=== PATIENT | female | born 1975 | race Caucasian/White ===

== ENCOUNTER 2016-06-20 09:11 | Emergency (ER) | payer OTHER ==
[2016-06-20 09:36] VITALS: BP 133/81
--- NOTE | 2016-06-20 10:28 | UC ---
HPI Wound/Suture Re-check - HPI Summary HPI Summary: pt presents to have sutures removed from her scalp that were placed while she was in inpt rehab for alcohol, 10 days ago. States she has had no problems with them. Believes she was told there were 7 sutures, but admits that she did pick at the sutures one night in her sleep, so she may have picked one out. - History Of Current Complaint Chief Complaint: UCSkin Stated Complaint: STITCHES REMOVAL Time Seen by Provider: 06/20/16 10:24 Hx Obtained From: Patient Onset/Duration: Gradual Onset, Lasting Days, Still Present Surgical Site: posterior scalp Severity: Mild Pain Intensity: 0 Pain Scale Used: 0-10 Numeric Procedure Type: sutures Surgery Date: 06/11/16 - not at a [facility] facility - Allergies/Home Medications Allergies/Adverse Reactions: Allergies Allergy/AdvReac Type Severity Reaction Status Date / Time No Known Allergies Allergy Verified 06/20/16 09:29 Home Medications: Home Medications Naltrexone (NF) 50 mg PO DAILY 06/20/16 [History Confirmed 06/20/16] hydrOXYzine HCL TAB* [Atarax TAB*] 10 mg PO DAILY 06/20/16 [History Confirmed ] PMH/Surg Hx/FS Hx/Imm Hx Previously Healthy: No - alcoholism, s/p rehab - Surgical History Surgical History: None - Family History Known Family History: Positive: Other - alcohol abuse - Social History Lives: With Family Alcohol Use: None Alcohol Amount: currently in rehab for alcohol Substance Use Type: None Substance Use Comment - Amount & Last Used: currently in rehab for use Smoking Status (MU): Never Smoked Tobacco Review of Systems Constitutional: Negative Skin: Negative Eyes: Negative ENT: Negative Respiratory: Negative Cardiovascular: Negative Gastrointestinal: Negative Genitourinary: Negative Motor: Negative Neurovascular: Negative Musculoskeletal: Negative Neurological: Negative Psychological: Negative All Other Systems Reviewed And Are Negative: Yes Physical Exam Triage Information Reviewed: Yes Appearance: Well-Appearing, No Pain Distress, Well-Nourished Vital Signs: Initial Vital Signs Temp 98.4 F 06/20/16 09:30 Pulse 78 06/20/16 09:30 Resp 14 06/20/16 09:30 BP 133/81 06/20/16 09:30 Pulse Ox 99 06/20/16 09:30 Vital Signs Reviewed: Yes Eyes: Positive: Conjunctiva Clear ENT: Positive: Normal ENT inspection, Hearing grossly normal Neck exam: Normal Respiratory: Positive: No respiratory distress Cardiovascular: Positive: Pulses Normal, Brisk Capillary Refill Musculoskeletal: Positive: Strength Intact, ROM Intact Neurological: Positive: Alert, Muscle Tone Normal Psychological Exam: Normal Skin: Positive: Other - well healed sutures, intact. #6 sutures removed, a seventh suture is not visualized. Pt advised Procedures - Procedure Summary Procedure Summary: Suture removal of 6 black nylon sutures without problem. Antibiotic ointment applied. Course/Dx - Differential Dx - Laceration/Wound Provider Diagnoses: suture removal Discharge - Discharge Plan Condition: Stable Disposition: HOME Patient Education Materials: Stitches Removal (ED) Referrals: Jessie Ruano MD [Primary Care Provider] - Additional Instructions: YOU MAY RESUME USUAL ACTIVITIES. YOU MAY SHOWER USUAL. YOU MAY APPLY ANTIBIOTIC OINTMENT FOR THE NEXT 1-[address] WILKINS REMOVED 6 SUTURES. IF YOU HAVE ANY PROBLEMS WITH THE WOUND, RETURN TO URGENT CARE OR FOLLOW UP WITH YOUR PRIMARY CARE PROVIDER.
== END 2016-06-20 10:59 | disposition home or self-care (01) ==
LOC: UCCORT 09:11
DX: Z48.02 Encounter for removal of sutures (principal); F10.20 Alcohol dependence, uncomplicated
CPT/HCPCS: 99212; G0463

== ENCOUNTER 2016-06-25 08:14 | Emergency (ER) | payer OTHER ==
[2016-06-25 08:41] VITALS: BP 116/69
--- NOTE | 2016-06-25 08:51 | UC ---
Throat Pain/Nasal Jose Antonio HPI - HPI Summary HPI Summary: SORE THROAT X 1 DAY, + HEADACHES, FEVER, CHILLS, NO COUGH, NO NASAL CONGESTION - History of Current Complaint Chief Complaint: UCGeneralIllness Stated Complaint: SORE THROAT HEADACHE Time Seen by Provider: 06/25/16 08:41 Hx Obtained From: Patient Hx Last Menstrual Period: 05/29/16 Onset/Duration: Sudden Onset, Lasting Days - 1, Still Present Severity: Moderate Cough: None Associated Signs & Symptoms: Positive: Fever. Negative: Wheezing, Hoarseness, Sinus Discomfort, Nasal Discharge, Rash - Allergies/Home Medications Allergies/Adverse Reactions: Allergies Allergy/AdvReac Type Severity Reaction Status Date / Time No Known Allergies Allergy Verified 06/25/16 08:37 Home Medications: Home Medications Pseudoephedrine TAB* [Sudafed TAB*] 30 mg PO Q6H PRN 06/25/16 [History Confirmed 06/25/16] PMH/Surg Hx/FS Hx/Imm Hx Previously Healthy: Yes - Surgical History Surgical History: None - Family History Known Family History: Positive: Other - alcohol abuse Negative: Diabetes - Social History Alcohol Use: None Alcohol Amount: currently in rehab for alcohol Substance Use Type: None Substance Use Comment - Amount & Last Used: currently in rehab for use Smoking Status (MU): Never Smoked Tobacco - Immunization History Most Recent Influenza Vaccination: May 2016 Review of Systems Constitutional: Fever, Chills, Fatigue Skin: Negative Eyes: Negative ENT: Sore Throat Respiratory: Negative Cardiovascular: Negative Gastrointestinal: Negative All Other Systems Reviewed And Are Negative: Yes Physical Exam Triage Information Reviewed: Yes Appearance: Well-Appearing, No Pain Distress, Well-Nourished Vital Signs: Initial Vital Signs Temp 99.1 F 06/25/16 08:35 Pulse 96 06/25/16 08:35 Resp 16 06/25/16 08:35 BP 116/69 06/25/16 08:35 Pulse Ox 100 06/25/16 08:35 Vital Signs Reviewed: Yes Eye Exam: Normal Eyes: Positive: Conjunctiva Clear ENT: Positive: Normal ENT inspection, Hearing grossly normal, Pharyngeal erythema, TMs normal. Negative: Nasal congestion, Nasal drainage, Tonsillar swelling, Tonsillar exudate Neck exam: Normal Neck: Positive: Supple, Nontender, No Lymphadenopathy Respiratory Exam: Normal Respiratory: Positive: Chest non-tender, Lungs clear, Normal breath sounds, No respiratory distress Cardiovascular Exam: Normal Cardiovascular: Positive: RRR, No Murmur, Pulses Normal Abdominal Exam: Normal Musculoskeletal Exam: Normal Neurological Exam: Normal Skin Exam: Normal Throat Pain/Nasal Course/Dx - Differential Dx/Diagnosis Provider Diagnoses: STREP PHARYNGITIS Discharge - Discharge Plan Condition: Stable Disposition: HOME Prescriptions: Amoxicillin (*) 875 mg PO BID #20 tab Patient Education Materials: Strep Throat (ED) Forms: *Work Release Referrals: Jessie Ruano MD [Primary Care Provider] - If Needed
== END 2016-06-25 09:12 | disposition home or self-care (01) ==
LOC: UCCORT 08:14
DX: J02.0 Streptococcal pharyngitis (principal); F10.10 Alcohol abuse, uncomplicated
CPT/HCPCS: 87651; 99212; G0463

== ENCOUNTER 2016-09-26 10:58 | Emergency (ER) | payer OTHER ==
[2016-09-26 11:21] VITALS: BP 113/62
--- NOTE | 2016-09-26 11:46 | UC ---
Throat Pain/Nasal Jose Antonio HPI - HPI Summary HPI Summary: 41 yo female with sore throat x 2 days - History of Current Complaint Chief Complaint: UCGeneralIllness Stated Complaint: SORE THROAT Time Seen by Provider: 09/26/16 11:33 Hx Obtained From: Patient Hx Last Menstrual Period: 09/20/16 Onset/Duration: Gradual Onset, Lasting Days Severity: Mild Pain Intensity: 4 Pain Scale Used: 0-10 Numeric Associated Signs & Symptoms: Positive: Negative - Allergies/Home Medications Allergies/Adverse Reactions: Allergies Allergy/AdvReac Type Severity Reaction Status Date / Time No Known Allergies Allergy Verified 09/26/16 11:16 Home Medications: Home Medications Levothyroxine TAB* [Synthroid 88 MCG TAB*] 88 mcg PO DAILY 09/26/16 [History Confirmed 09/26/16] PMH/Surg Hx/FS Hx/Imm Hx Previously Healthy: Yes Endocrine History Of: Reports: Thyroid Disease - Hypothyroidism - Surgical History Surgical History: None - Family History Known Family History: Positive: Other - alcohol abuse Negative: Hypertension, Diabetes - Social History Alcohol Use: None Alcohol Amount: currently in rehab for alcohol Substance Use Type: None Substance Use Comment - Amount & Last Used: currently in rehab for use Smoking Status (MU): Never Smoked Tobacco - Immunization History Most Recent Influenza Vaccination: May 2016 Review of Systems Constitutional: Negative Skin: Negative Eyes: Negative ENT: Sore Throat Respiratory: Negative Cardiovascular: Negative Gastrointestinal: Negative Genitourinary: Negative Motor: Negative Neurovascular: Negative Musculoskeletal: Negative Neurological: Negative Psychological: Negative All Other Systems Reviewed And Are Negative: Yes Physical Exam Triage Information Reviewed: Yes Appearance: Well-Appearing, No Pain Distress, Well-Nourished Vital Signs: Initial Vital Signs Temp 98.1 F 09/26/16 11:14 Pulse 76 09/26/16 11:14 Resp 16 09/26/16 11:14 BP 113/62 09/26/16 11:14 Pulse Ox 99 09/26/16 11:14 Eyes: Positive: Conjunctiva Clear ENT: Positive: Hearing grossly normal, Pharynx normal, TMs normal, Tonsillar swelling, Tonsillar exudate Dental Exam: Normal Neck: Positive: Nontender, Enlarged Nodes @ - ant cervical Respiratory: Positive: Lungs clear, Normal breath sounds, No respiratory distress Cardiovascular: Positive: RRR Musculoskeletal: Positive: ROM Intact, No Edema Neurological: Positive: Alert Psychological Exam: Normal Skin Exam: Normal Throat Pain/Nasal Course/Dx - Differential Dx/Diagnosis Provider Diagnoses: strep throat Discharge - Discharge Plan Condition: Stable Disposition: HOME Prescriptions: Amoxicillin (*) [Amoxicillin 875 MG (*)] 875 mg PO BID #20 tab Patient Education Materials: Strep Throat (ED) Forms: *Gen. Provider Communication Referrals: Jessie Ruano MD [Medical Doctor] - If Needed Additional Instructions: recheck for new or worsening symptoms recheck in 4 days if not better
== END 2016-09-26 11:47 | disposition home or self-care (01) ==
LOC: UCCORT 10:58
DX: J02.0 Streptococcal pharyngitis (principal); E03.9 Hypothyroidism, unspecified
CPT/HCPCS: 87651; 99212; G0463